=== PATIENT | female | born 1955 | race Caucasian/White ===

== ENCOUNTER 2020-05-17 16:41 | Observation (INO) | payer OTHER ==
[~2020-05-17] VITALS: Ht 165.1 cm; Wt 83.5 kg
[2020-05-17 17:14] LABS: BASOPHILS % (AUTO) 0 % (0-10); EOSINOPHILS # (AUTO) 0.1 10^3/uL (0.0-0.3); EOSINOPHILS % (AUTO) 1 % (0-10); HEMATOCRIT 48 % (35-52); HEMOGLOBIN 16.2 g/dL (11.5-16.0); LYMPHOCYTES # (AUTO) 1.6 10^3/uL (1.0-4.0); LYMPHOCYTES % (AUTO) 21 % (12-44); MEAN CORPUSCULAR HEMOGLOBIN 29 pg (25-34); MEAN CORPUSCULAR HGB CONC 34 g/dL (32-36); MEAN CORPUSCULAR VOLUME 88 fL (80-99); MEAN PLATELET VOLUME 9.9 fL (9.0-12.2); MONOCYTES # (AUTO) 0.5 10^3/uL (0.0-1.0); MONOCYTES % (AUTO) 6 % (0-12); NEUTROPHILS # (AUTO) 5.7 10^3/uL (1.8-7.8); NEUTROPHILS % (AUTO) 72 % (42-75); PLATELET COUNT 283 10^3/uL (130-400); WHITE BLOOD COUNT 7.9 10^3/uL (4.3-11.0)
[2020-05-17 17:24] LABS: ALBUMIN 4.6 GM/DL (3.2-4.5); CHLORIDE 96 MMOL/L (98-107); SODIUM 135 MMOL/L (135-145)
[2020-05-17 17:26] LABS: CALCIUM 9.5 MG/DL (8.5-10.1)
[2020-05-17 17:27] LABS: GLUCOSE 169 MG/DL (70-105); TOTAL PROTEIN 7.6 GM/DL (6.4-8.2)
[2020-05-17 17:28] LABS: CARBON DIOXIDE 24 MMOL/L (21-32)
[2020-05-17 17:29] LABS: BILIRUBIN,TOTAL 1.1 MG/DL (0.1-1.0)
[2020-05-17 17:30] LABS: ALKALINE PHOSPHATASE 87 U/L (40-136); CREATININE SERUM 1.83 MG/DL (0.60-1.30); GFR ESTIMATED 28
[2020-05-17 17:31] LABS: BUN/CREATININE RATIO 22
[2020-05-17 17:33] LABS: ALANINE AMINOTRANSFERASE 25 U/L (0-55)
[2020-05-17] MEDS ORDERED: NS IV 1000 ML 1,000 ML IV SCH ×2 (18:00→23:00)
[2020-05-17 18:11] LABS: CLARITY,URINE CLEAR; COLOR,URINE YELLOW; GLUCOSE, URINE (UA) NEGATIVE (NEGATIVE); KETONES,URINE NEGATIVE (NEGATIVE); LEUKOCYTE ESTERASE ,URINE TRACE (NEGATIVE); NITRITE,URINE NEGATIVE (NEGATIVE); PROTEIN,URINE NEGATIVE (NEGATIVE)
--- NOTE | 2020-05-17 18:11 | NUR ---
Pt ambulated to restroom without difficulty; pt was noted to lean forward at the waist while ambulating.
[2020-05-17 18:15] LABS: BILIRUBIN,URINE NEGATIVE (NEGATIVE)
[2020-05-17 18:20] LABS: AMORPHOUS SEDIMENT,UR FEW AMOR URATES /LPF; BACTERIA,URINE TRACE /HPF; HYALINE CASTS, URINE 25-50 /LPF; WBC,URINE 0-2 /HPF
--- NOTE | 2020-05-17 18:27 | ED Syncope ---
General Chief Complaint: Dizziness/Syncope Stated Complaint: DIZZINESS/SYNCOPE Nursing Triage Note: Pt had a syncopal episode earlier today; denies injury. Pt does report she has had difficulty walking x 1 wk: states "my legs get ahead of me". (RAJ GREEN MD) History of Present Illness Date Seen by Provider: May 17, 2020 Time Seen by Provider: 17:08 Initial Comments This 64-year-old woman presents to the emergency room with a couple episodes over the last couple weeks of disequilibrium and syncope or near syncope. Today she actually went down to the ground and thinks she might have momentarily lost consciousness. She denies any injury. She describes a sensation of being off balance or her feet trying to go ahead of her body when she walks. She does demonstrate ability to walk independently and safely in the emergency room and reports that symptoms are not as intense at this moment. She has had recent headache as well. She denies any drug, tobacco, or alcohol use. She recently moved to the area from [place] and has not yet established with a local primary care provider. (RAJ GREEN MD) Allergies and Home Medications Allergies Coded Allergies: No Known Drug Allergies (Unverified , 05/17/20) Patient Home Medication List Home Medication List Reviewed: Yes (RAJ GREEN MD) Review of Systems Constitutional: no symptoms reported EENTM: no symptoms reported Respiratory: no symptoms reported Cardiovascular: no symptoms reported Gastrointestinal: no symptoms reported Genitourinary: no symptoms reported : No Musculoskeletal: no symptoms reported Skin: no symptoms reported Psychiatric/Neurological: See HPI (RAJ GREEN MD) Past Wmecska-Zdoegw-Jccvbu Hx Past Med/Social Hx: Reviewed Nursing Past Med/Soc Hx (RAJ GREEN MD) Patient Social History Alcohol Use: Denies Use Recreational Drug Use: No Smoking Status: Never a Smoker Recent Foreign Travel: No Contact w/Someone Who Travel: No Recent Infectious Disease Expo: No Recent Hopitalizations: No (RAJ GREEN MD) Seasonal Allergies Seasonal Allergies: No (RAJ GREEN MD) Past Medical History Surgeries: Yes Tubal Ligation Cardiac: Yes Hypertension Gastrointestinal: No Musculoskeletal: No Endocrine: Yes Diabetes, Non-Insulin dep HEENT: No Cancer: No Psychosocial: No (RAJ GREEN MD) Physical Exam Vital Signs Vital Signs - First Documented 05/17/20 16:50 Temp 37.3 Pulse 71 Resp 18 B/P (MAP) 134/74 (94) O2 Delivery Room Air (MICHAEL BARTON MD) Vital Signs Capillary Refill : Less Than 3 Seconds (RAJ GREEN MD) Height, Weight, BMI Height: '" Weight: lbs. oz. kg; 38.00 BMI Method: General Appearance: No Apparent Distress, WD/WN HEENT: PERRL/EOMI, Normal ENT Inspection Neck: Normal Inspection Cardiovascular: Regular Rate, Rhythm, No Edema, No Murmur Respiratory: Lungs Clear, Normal Breath Sounds, No Accessory Muscle Use, No Respiratory Distress Gastrointestinal: Normal Bowel Sounds, No Organomegaly, Soft Neurologic/Psychiatric: Alert, Oriented x3, No Motor/Sensory Deficits, Normal Mood/Affect, import/export analyst II-XII Norm as Tested Cranial Nerves: Normal Speech, PERRL Coordination/Gait: Normal Gait Motor/Sensory: No Motor Deficit, No Sensory Deficit, No Pronator Drift, Negative Babinski's Sign Skin: Normal Color, Warm/Dry (RAJ GREEN MD) Progress/Results/Core Measures Results/Orders Lab Results Laboratory Tests Test 05/17/20 17:00 05/17/20 18:00 Range/Units White Blood Count 7.9 4.3-11.0 10^3/uL Red Blood Count 5.52 H 3.80-5.11 10^6/uL Hemoglobin 16.2 H 11.5-16.0 g/dL Hematocrit 48 35-52 % Mean Corpuscular Volume 88 80-99 fL Mean Corpuscular Hemoglobin 29 25-34 pg Mean Corpuscular Hemoglobin Concent 34 32-36 g/dL Red Cell Distribution Width 12.9 10.0-14.5 % Platelet Count 283 130-400 10^3/uL Mean Platelet Volume 9.9 9.0-12.2 fL Immature Granulocyte % (Auto) 0 % Neutrophils (%) (Auto) 72 42-75 % Lymphocytes (%) (Auto) 21 12-44 % Monocytes (%) (Auto) 6 0-12 % Eosinophils (%) (Auto) 1 0-10 % Basophils (%) (Auto) 0 0-10 % Neutrophils # (Auto) 5.7 1.8-7.8 10^3/uL Lymphocytes # (Auto) 1.6 1.0-4.0 10^3/uL Monocytes # (Auto) 0.5 0.0-1.0 10^3/uL Eosinophils # (Auto) 0.1 0.0-0.3 10^3/uL Basophils # (Auto) 0.0 0.0-0.1 10^3/uL Immature Granulocyte # (Auto) 0.0 0.0-0.1 10^3/uL Sodium Level 135 135-145 MMOL/L Potassium Level 4.0 3.6-5.0 MMOL/L Chloride Level 96 L 98-107 MMOL/L Carbon Dioxide Level 24 21-32 MMOL/L Anion Gap 15 H 5-14 MMOL/L Blood Urea Nitrogen 40 H 7-18 MG/DL Creatinine 1.83 H 0.60-1.30 MG/DL Estimat Glomerular Filtration Rate 28 BUN/Creatinine Ratio 22 Glucose Level 169 H 70-105 MG/DL Calcium Level 9.5 8.5-10.1 MG/DL Corrected Calcium 8.5-10.1 MG/DL Total Bilirubin 1.1 H 0.1-1.0 MG/DL Aspartate Amino Transf (AST/SGOT) 18 5-34 U/L Alanine Aminotransferase (ALT/SGPT) 25 0-55 U/L Alkaline Phosphatase 87 40-136 U/L Troponin I < 0.028 <0.028 NG/ML Total Protein 7.6 6.4-8.2 GM/DL Albumin 4.6 H 3.2-4.5 GM/DL Urine Color YELLOW Urine Clarity CLEAR Urine pH 5.0 5-9 Urine Specific [place] 1.025 H 1.016-1.022 Urine Protein NEGATIVE NEGATIVE Urine Glucose (UA) NEGATIVE NEGATIVE Urine Ketones NEGATIVE NEGATIVE Urine Nitrite NEGATIVE NEGATIVE Urine Bilirubin NEGATIVE NEGATIVE Urine Urobilinogen 0.2 < = 1.0 MG/DL Urine Leukocyte Esterase TRACE H NEGATIVE Urine RBC (Auto) NEGATIVE NEGATIVE Urine RBC NONE /HPF Urine WBC 0-2 /HPF Urine Squamous Epithelial Cells 5-10 /HPF Urine Crystals NONE /LPF Urine Amorphous Sediment FEW DANNY URATES H /LPF Urine Bacteria TRACE /HPF Urine Casts PRESENT /LPF Urine Hyaline Casts 25-50 H /LPF Urine Mucus SMALL H /LPF Urine Culture Indicated NO (MICHAEL BARTON MD) My Orders Orders - MICHAEL BARTON MD Lactated Ringers (Lr 1000 Ml Iv Solution (05/17/20 19:37) Troponin I (05/17/20 19:39) (MICHAEL BARTON MD) Vital Signs/I&O 05/17/20 16:50 Temp 37.3 Pulse 71 Resp 18 B/P (MAP) 134/74 (94) O2 Delivery Room Air (MICHAEL BARTON MD) Blood Pressure Mean: 94 Progress Progress Note : Time: 18:26 Progress Note Patient was seen and evaluated. I did observe her walk for a significant distance and she was able to do so safely and independently. Her creatinine and BUN are elevated. We do not have a baseline. I can speculate that this may be part of her symptom etiology. We are administering a liter of IV fluids. I did check a standing blood pressure and it did not change significantly prior to fluids. I desired to obtain a CT angiogram of the head and neck but could not due to her renal function. A plain CT is being obtained. Care of this patient is being transitioned to Dr. Barton at this time. Urinalysis and CT of the head are pending. (RAJ GREEN MD) Progress Note : Progress Note 1829: Assumed care of the patient pending CT scan. Monitor patient. 2020: CT complete. I have added another liter of IV fluid. Patient is overall feeling much better. States that she started Metformin a month or so ago and some of the symptoms have started since then. Denies chest pain or breathing problems. Monitor patient. 2049: CT results noted. I did discuss the case with the patient and with Dr. Ledbetter. She has no outpatient follow-up as she is new to the area and would benefit from physical therapy evaluation as well's adjustment of her diabetes medicine. She has had some episodes of bradycardia although I think it is related to PAC/PVC. She would benefit from telemetry overnight. Dr. Ledbetter agrees. Patient accepts admission, observation status with physical therapy evaluation in the morning. We have asked for social work to consult regarding outpatient services and options for local physicians. Patient agrees with plan. She is better after 2 L of IV fluid that have been given in the emergency department. We will check labs in the morning. (MICHAEL BARTON MD) Initial ECG Impression Date: May 17, 2020 Initial ECG Impression Time: 17:08 Initial ECG Rate: 69 Initial ECG Rhythm: Normal Sinus Comment Sinus rhythm with no ST elevation or depression. PAC noted. Automated read notes incomplete left bundle branch block. (RAJ GREEN MD) Diagnostic Imaging Diagonstic Imaging: CT Plain Films/CT/US/NM/MRI: head Comments [facility], [place] NAME: ROBER FERRER REC#: [id number] PT STATUS: REG ER : 1955 PHYSICIAN: RAJ GREEN MD ADMIT DATE: 05/17/20/ER Draft Date of Exam:05/17/20 CT HEAD/CERVICAL SPINE WO PROCEDURE: CT head and CT cervical spine without contrast. TECHNIQUE: Multiple contiguous axial images were obtained through the brain and cervical spine without the use of intravenous contrast. Sagittal and coronal reformations through the cervical spine were then performed. Auto Exposure Controls were utilized during the CT exam to meet ALARA standards for radiation dose reduction. INDICATION: Fall. COMPARISON: No comparison is available. FINDINGS: There is no CT finding of acute intracranial hemorrhage. There is no evidence of an abnormal extra-axial collection. There is no intracranial mass effect or shift. There is no finding of territorial loss of barba-white differentiation. The lateral and 3rd ventricles are prominent. Prominence of the ventricles are greater than expected for the degree of volume loss. There is also some crowding of the sulci at the high vertex. Findings are suggestive of underlying normal pressure hydrocephalus. The mastoid air cells appear clear. The visualized paranasal sinuses appear clear. Orbital contents unremarkable. There are no findings of a calvarial fracture. Cervical spine demonstrate multilevel cervical degenerative disc disease and facet arthropathy. There is straightening of the cervical lordosis. Alignment of the craniocervical junction appears appropriate. There are normal relationships of the lateral masses of C1 and C2. The facets are normally aligned. There is no facet joint or disc space widening. Vertebral body heights are maintained. No acute cervical spine fracture is evident. There are advanced degenerative endplate changes with endplate spurs at C5-C6 and C6-C7. There is moderate narrowing of the central canal at the C5-C6 level and there also appears to be severe narrowing of both neural foramen. At C6-C7 there is additionally moderate narrowing of the central canal and moderate narrowing of both neural foramen. The lung apices appear clear. Soft tissues of the neck demonstrate a small right thyroid nodule. There is no acute process. IMPRESSION: 1. No CT evidence of an acute intracranial abnormality. There is no finding of intracranial hemorrhage or calvarial fracture. 2. No loss of barba-white differentiation. 3. Prominent lateral and 3rd ventricles out of proportion to the degree of volume loss present. In the appropriate clinical setting consider normal pressure hydrocephalus. 4. Cervical degenerative disc disease and facet arthropathy without acute fracture or traumatic malalignment. There is moderate narrowing of the central canal at both C5-C6 and C6-C7. There is severe bilateral foraminal stenosis at C5-C6 and moderate bilateral foraminal stenosis at the C6-C7 level. Dictated on workstation # [id number] Dict: 05/17/201999 Trans: 05/17/202013 [facility] [id number] Interpreted by: LEIGH CHICAS MD Electronically signed by: (MICHAEL BARTON MD) Departure Communication (Admissions) Time/Spoke to Admitting Phy: 20:50 (MICHAEL BARTON MD) Impression Primary Impression: Disequilibrium Additional Impressions: Syncope Qualified Codes: R55 - Syncope and collapse Renal insufficiency Normal pressure hydrocephalus Bradycardia Disposition: 09 ADMITTED INPATIENT Condition: Stable Admissions Decision to Admit Reason: Admit from ER (General) Decision to Admit/Date: May 17, 2020 Time/Decision to Admit Time: 20:50 (MICHAEL BARTON MD) Departure-Patient Inst. Referrals: NO,LOCAL PHYSICIAN (PCP/Family) Primary Care Physician RAJ GREEN MD May 17, 2020 18:27 MICHAEL BARTON MD May 17, 2020 20:25
[2020-05-17] MEDS ORDERED: LACTATED RINGERS 1,000 ML IV STA (19:37)
--- NOTE | 2020-05-17 19:39 | NUR ---
Pt to CT.
--- NOTE | 2020-05-17 20:00 | NUR ---
Pt back from CT
--- NOTE | 2020-05-17 20:14 | Diagnostic Imaging Report ---
PROCEDURE: CT head and CT cervical spine without contrast. TECHNIQUE: Multiple contiguous axial images were obtained through the brain and cervical spine without the use of intravenous contrast. Sagittal and coronal reformations through the cervical spine were then performed. Auto Exposure Controls were utilized during the CT exam to meet ALARA standards for radiation dose reduction. INDICATION: Fall. COMPARISON: No comparison is available. FINDINGS: There is no CT finding of acute intracranial hemorrhage. There is no evidence of an abnormal extra-axial collection. There is no intracranial mass effect or shift. There is no finding of territorial loss of barba-white differentiation. The lateral and 3rd ventricles are prominent. Prominence of the ventricles are greater than expected for the degree of volume loss. There is also some crowding of the sulci at the high vertex. Findings are suggestive of underlying normal pressure hydrocephalus. The mastoid air cells appear clear. The visualized paranasal sinuses appear clear. Orbital contents unremarkable. There are no findings of a calvarial fracture. Cervical spine demonstrate multilevel cervical degenerative disc disease and facet arthropathy. There is straightening of the cervical lordosis. Alignment of the craniocervical junction appears appropriate. There are normal relationships of the lateral masses of C1 and C2. The facets are normally aligned. There is no facet joint or disc space widening. Vertebral body heights are maintained. No acute cervical spine fracture is evident. There are advanced degenerative endplate changes with endplate spurs at C5-C6 and C6-C7. There is moderate narrowing of the central canal at the C5-C6 level and there also appears to be severe narrowing of both neural foramen. At C6-C7 there is additionally moderate narrowing of the central canal and moderate narrowing of both neural foramen. The lung apices appear clear. Soft tissues of the neck demonstrate a small right thyroid nodule. There is no acute process. IMPRESSION: 1. No CT evidence of an acute intracranial abnormality. There is no finding of intracranial hemorrhage or calvarial fracture. 2. No loss of barba-white differentiation. 3. Prominent lateral and 3rd ventricles out of proportion to the degree of volume loss present. In the appropriate clinical setting consider normal pressure hydrocephalus. 4. Cervical degenerative disc disease and facet arthropathy without acute fracture or traumatic malalignment. There is moderate narrowing of the central canal at both C5-C6 and C6-C7. There is severe bilateral foraminal stenosis at C5-C6 and moderate bilateral foraminal stenosis at the C6-C7 level. Dictated by: Dictated on workstation # [id number]
--- NOTE | 2020-05-17 22:27 | NUR ---
ROBER FERRER admitted to room 416-1, with an admitting diagnosis of BRADYCARDIA, DISEQUILIBRIUM, AND NORMAL PRESSURE HYDROCEPHALUS on 05/17/20 from ER via , accompanied by ER STAFF. ROBER FERRER introduced to surroundings, call light, bed controls, phone, TV, temperature control, lights, meal times, smoking policy, visitor policy, side rail policy, bathrooms and showers. Patient Rights given to patient in the handbook. ROBER FERRER verbalizes understanding that [facility] is not responsible for the loss or damage to any personal effects or valuables that are kept in the patients posession during their hospitalization. ROBER FERRER verbalizes understanding of Interdisciplinary Patient Education. Patient and/or family were informed about the Rapid Response Team and its purpose.
[2020-05-17 22:28] VITALS: BP 141/65
[2020-05-17 23:31] VITALS: BP 148/66
[2020-05-18 04:17] VITALS: BP 128/62
[2020-05-18 06:22] LABS: BASOPHILS % (AUTO) 0 % (0-10); EOSINOPHILS # (AUTO) 0.1 10^3/uL (0.0-0.3); EOSINOPHILS % (AUTO) 2 % (0-10); HEMATOCRIT 43 % (35-52); HEMOGLOBIN 14.2 g/dL (11.5-16.0); LYMPHOCYTES # (AUTO) 1.5 10^3/uL (1.0-4.0); LYMPHOCYTES % (AUTO) 28 % (12-44); MEAN CORPUSCULAR HEMOGLOBIN 30 pg (25-34); MEAN CORPUSCULAR HGB CONC 33 g/dL (32-36); MEAN CORPUSCULAR VOLUME 90 fL (80-99); MEAN PLATELET VOLUME 9.8 fL (9.0-12.2); MONOCYTES # (AUTO) 0.4 10^3/uL (0.0-1.0); MONOCYTES % (AUTO) 7 % (0-12); NEUTROPHILS # (AUTO) 3.3 10^3/uL (1.8-7.8); NEUTROPHILS % (AUTO) 63 % (42-75); PLATELET COUNT 171 10^3/uL (130-400); WHITE BLOOD COUNT 5.2 10^3/uL (4.3-11.0)
[2020-05-18 06:34] LABS: ALBUMIN 3.8 GM/DL (3.2-4.5); POTASSIUM 3.6 MMOL/L (3.6-5.0)
[2020-05-18 06:36] LABS: TOTAL PROTEIN 5.9 GM/DL (6.4-8.2)
[2020-05-18 06:38] LABS: BILIRUBIN,TOTAL 0.7 MG/DL (0.1-1.0)
[2020-05-18 06:40] LABS: CREATININE SERUM 1.24 MG/DL (0.60-1.30)
[2020-05-18] MEDS: inSUlin ASPART (NovoLOG) 1 UNIT/0.01 ML (CHARGE PER UNIT) SC SCH ×2 (06:42→11:25)
[2020-05-18 08:00] VITALS: BP 126/58
--- NOTE | 2020-05-18 10:20 | Physical Therapy Evaluation ---
PT Evaluation-General Medical Diagnosis Admission Date May 17, 2020 at 21:04 Medical Diagnosis: normal pressure hydrocephalus/dis equilibrium Onset Date: May 17, 2020 Therapy Diagnosis Therapy Diagnosis: debility Precautions Precautions/Isolations: Standard Precautions Referral Physician: Josesito Reason for Referral: Evaluation/Treatment Medical History Pertinent Medical History: DM, HTN Current History ER secondary to BRUCE and dizziness (patient reports she had an episode after leaving the bar) Reviewed History: Yes Social History Home: Single Level Current Living Status: Other Family Prior Prior Level of Function SCALE: Activities may be completed with or without assistive devices. 4-Xccnodxhny-rldybxm completes the activity by him/herself with no assistance from a helper. 5-Set-up or Clean-up Assistance-helper sets up or cleans up; patient completes activity. [place] assists only prior to or following the activity. 4-Supervision or Touching Assistance-helper provides verbal cues and/or touching/steadying and/or contact guard assistance as patient completes activity. Assistance may be provided throughout the activity or intermittently. 3-Partial/Moderate Assistance-helper does LESS THAN HALF the effort. [place] lifts, holds or supports trunk or limbs, but provides less than half the effort. 2-Substantial/Maximal Assistance-helper does MORE THAN HALF the effort. [place] lifts or holds trunk or limbs and provides more than half the effort. 9-Wdgfiiiuj-isqipq does ALL the effort. Patient does none of the effort to complete the activity. Or, the assistance of 2 or more helpers is required for the patient to complete the activity. If activity was not attempted, code reason: 7-Patient Refused. 9-Not Applicable-not attempted and the patient did not perform the activity before the current illness, exacerbation or injury. 10-Not Attempted due to Environmental Limitations-(lack of equipment, weather restraints, etc.). 88-Not Attempted due to Medical Conditions or Safety Concerns. Bed Mobility: 6 Transfers (B,C,W/C): 6 Gait: 6 Stairs: 6 Indoor Mobility (Ambulation): Independent Stairs: Independent Prior Devices Use: None PT Evaluation-Current Subjective Patient agrees to PT. No c/o. Objective Patient Orientation: Normal For Age Attachments: IV ROM/Strength ROM Lower Extremities bilateral LE WFL Strength Lower Extremities 4/5 grossly bilateral LE Integumentary/Posture Integumentary refer to nursing notes Bowel Incontinence: No Bladder Incontinence: No Posture WFL Neuromuscular (Tone, Coordination, Reflexes) grossly intact Sensory Vision: Functional Hearing: Functional Sensation Right Lower Extremit: Intact Sensation Left Lower Extremity: Intact Transfers Lying to Sitting/Side of Bed(Q: 6 Sit to Stand (QC): 6 Chair/Wjs-pi-Qeppt Xfer(QC): 6 Toilet Transfer (QC): 6 Gait Does the Patient Walk?: Yes Mode of Locomotion: Walk Anticipated Mode of Locomotion: Walk Walk 10 feet (QC): 6 Walk 50 ft with 2 Turns(QC): 6 Walk 150 ft (QC): 6 Distance: 550' Gait Assistive Device: None Comments/Gait Description safe and functional with no deviation Balance Sitting Static: Normal Sitting Dynamic: Normal Standing Static: Normal Standing Dynamic: Normal Assessment/Needs 64 y.o. female, is currently at [facility] with all gross motor skills and does not require skilled therapy intervention. Rehab Potential: Fair PT Plan Treatment/Plan Treatment Plan: Discontinue PT, goals met Treatment Duration: May 18, 2020 Frequency: 1 time per week Estimated Hrs Per Day: .25 hour per day Patient and/or Family Agrees t: Yes Discharge Recommendations Therapy Discharge Recommendati: Home & Family Time/GCodes Time In: 929 Time Out: 938 Total Billed Treatment Time: 9 Total Billed Treatment 1 visit EVLowC 9 min ELI KRISHNAN PT May 18, 2020 10:20
[2020-05-18] MEDS ORDERED: LOSA50TA63 PO (10:30)
[2020-05-18] MEDS ORDERED: ASPI-816 PO (10:30)
[2020-05-18] MEDS ORDERED: KETO15CR2 TP (10:30)
[2020-05-18] MEDS ORDERED: AMLO-251 PO (10:30)
[2020-05-18] MEDS ORDERED: METF-397 PO (10:30)
[2020-05-18] MEDS ORDERED: ATOR10TA66 PO (10:30)
[2020-05-18] MEDS ORDERED: VENL-48 PO (10:30)
[2020-05-18] MEDS ORDERED: MONT10TA21 PO (10:30)
[2020-05-18] MEDS ORDERED: POTA10TA36 PO (10:30)
[2020-05-18] MEDS ORDERED: NFNEB10T PO (10:30)
[2020-05-18] MEDS ORDERED: HYDR12.56 PO (10:30)
--- NOTE | 2020-05-18 10:36 | NUR ---
SPOKE WITH THE PT (SHE HAS HER MED BOTTLES) TO COMPLETE THE MED REC FOLLOWING ARE FILL DATES FROM [facility] IN [place], [place]: 11-30-2019 ATORVASTATIN 10MG #90/90DS 02-18-2020 BYSTOLIC 10MG #30/30DS 03-10-2020 POTASSIUM CL ER 10MEQ #60/30DS 03-10-2020 VENLAFAXINE ER 37.5MG #30/30DS 03-10-2020 HCTZ 12.5MG #60/30DS 03-10-2020 AMLODIPINE 10MG #30/30DS 03-10-2020 MONTELUKAST 10MG #30/30DS 03-16-2020 LOSARTAN 50MG #60/30DS 04-03-2020 METFORMIN 500MG #60/30DS ALL THE PTS MEDICATIONS ARE PAST DUE FOR REFILLS (I INCLUDED THE PAST DUE FILL DATE ON THE MED REC)-I ASKED THE PT ABOUT THE FILL DATES AND ACCORDING TO ROBER SHE SOMETIMES FORGETS TO TAKE THE EVENING DOSES OF HER MEDICATIONS AND THOUGHT SHE HAD SOME EXTRA PILLS STILL LEFT OVER FROM PREVIOUS FILLS OTC MEDS: WAYNE BACK AND BODY PRN
--- NOTE | 2020-05-18 10:43 | NUR ---
CM/SS visited with patient for social service consult. Plan: Patient will discharge today 05/18 to home (son's house). Primary Care Physician: The patient reports that she does not have a primary care physician at this time. However, the physician and this sw discussed getting established with [facility] due to low income. CM/SS explained that they have a financial application to help provide assistance for her bills and pharmacy (5 dollar med plan). She is agreeable and verbalized understanding. Home: The patient has just recently moved here from [facility]. She is currently living with her son. He verbalized she could stay as long as she needs. Financial: The patient reports she does not currently have a job. She receives her late husbands social security but that is her only income. The patient's insurance expires at the end of the year. No further needs at this time.
--- NOTE | 2020-05-18 11:28 | NUR ---
Pt is Islam. declines sacraments and is glad she is going home.
[2020-05-18 12:00] VITALS: BP 128/61
--- NOTE | 2020-05-18 12:48 | Discharge Summary ---
Discharge Summary Hospital Course Was the Problem List Reviewed?: Yes Problems/Dx: (1) Weakness Status: Acute Hospital Course Date of Admission: May 17, 2020 at 21:04 Admission Diagnosis : Weakness Family Physician/Provider: No,Local Physician Date of Discharge: 05/18/20 Discharge Diagnosis: Weakness Hospital Course: Alexandra Smart is a 64-year-old female who was admitted with weakness. She said that she was leaving a sporting event when her legs "quit working" and she fell to the ground. She denied any loss of consciousness. She denied lightheadedness and/or dizziness. She denied any leg pain. She had no further issues with weakness after admission. Her lab workup was unrevealing. She was found to have an acute kidney injury which resolved with IV fluid resuscitation. Her CT Head was concerning for possible normal pressure hydrocephalus. She denied any issues with incontinence or confusion. She recently moved to [place] from [place] and needs to get set up with a new PCP. Labs and Pending Lab Test: Laboratory Tests 05/17/20 17:00: White Blood Count 7.9, Red Blood Count 5.52H, Hemoglobin 16.2H, Hematocrit 48, Mean Corpuscular Volume 88, Mean Corpuscular Hemoglobin 29, Mean Corpuscular Hemoglobin Concent 34, Red Cell Distribution Width 12.9, Platelet Count 283, Mean Platelet Volume 9.9, Immature Granulocyte % (Auto) 0, Neutrophils (%) (Auto) 72, Lymphocytes (%) (Auto) 21, Monocytes (%) (Auto) 6, Eosinophils (%) (Auto) 1, Basophils (%) (Auto) 0, Neutrophils # (Auto) 5.7, Lymphocytes # (Auto) 1.6, Monocytes # (Auto) 0.5, Eosinophils # (Auto) 0.1, Basophils # (Auto) 0.0, Immature Granulocyte # (Auto) 0.0, Sodium Level 135, Potassium Level 4.0, Chloride Level 96L, Carbon Dioxide Level 24, Anion Gap 15H, Blood Urea Nitrogen 40H, Creatinine 1.83H, Estimat Glomerular Filtration Rate 28, BUN/Creatinine Ratio 22, Glucose Level 169H, Calcium Level 9.5, Corrected Calcium , Total Bilirubin 1.1H, Aspartate Amino Transf (AST/SGOT) 18, Alanine Aminotransferase (ALT/SGPT) 25, Alkaline Phosphatase 87, Troponin I < 0.028, Total Protein 7.6, Albumin 4.6H 05/17/20 18:00: Urine Color YELLOW, Urine Clarity CLEAR, Urine pH 5.0, Urine Specific [place] 1.025H, Urine Protein NEGATIVE, Urine Glucose (UA) NEGATIVE, Urine Ketones NEGATIVE, Urine Nitrite NEGATIVE, Urine Bilirubin NEGATIVE, Urine Urobilinogen 0.2, Urine Leukocyte Esterase TRACEH, Urine RBC (Auto) NEGATIVE, Urine RBC NONE, Urine WBC 0-2, Urine Squamous Epithelial Cells 5-10, Urine Crystals NONE, Urine Amorphous Sediment FEW DANNY URATESH, Urine Bacteria TRACE, Urine Casts PRESENT, Urine Hyaline Casts 25-50H, Urine Mucus SMALLH, Urine Culture Indicated NO 05/18/20 05:46: White Blood Count 5.2, Red Blood Count 4.80, Hemoglobin 14.2, Hematocrit 43, Mean Corpuscular Volume 90, Mean Corpuscular Hemoglobin 30, Mean Corpuscular Hemoglobin Concent 33, Red Cell Distribution Width 12.9, Platelet Count 171, Mean Platelet Volume 9.8, Immature Granulocyte % (Auto) 0, Neutrophils (%) (Auto) 63, Lymphocytes (%) (Auto) 28, Monocytes (%) (Auto) 7, Eosinophils (%) (Auto) 2, Basophils (%) (Auto) 0, Neutrophils # (Auto) 3.3, Lymphocytes # (Auto) 1.5, Monocytes # (Auto) 0.4, Eosinophils # (Auto) 0.1, Basophils # (Auto) 0.0, Immature Granulocyte # (Auto) 0.0, Sodium Level 140, Potassium Level 3.6, Chloride Level 104, Carbon Dioxide Level 24, Anion Gap 12, Blood Urea Nitrogen 29H, Creatinine 1.24, Estimat Glomerular Filtration Rate 44, BUN/Creatinine Ratio 23, Glucose Level 136H, Calcium Level 9.0, Corrected Calcium 9.2, Total Bilirubin 0.7, Aspartate Amino Transf (AST/SGOT) 17, Alanine Aminotransferase (ALT/SGPT) 21, Alkaline Phosphatase 75, Total Protein 5.9L, Albumin 3.8 05/18/20 11:21: Glucometer 142H Home Meds Active Reported Wilberto Back & Body Caplet (Aspirin/Caffeine) 1 Each Tablet 1-2 Each PO Q6H PRN Ketoconazole 15 Gm Cream..g. 15 Gm TP PRN PRN Bystolic (Nebivolol HCl) 10 Mg Tab 10 Mg PO HS LAST FILLED 02-18-2020 #30/30 DAY SUPPLY Singulair (Montelukast Sodium) 10 Mg Tablet 10 Mg PO DAILY LAST FILLED 03-10-2020 #30/30 DAY SUPPLY Atorvastatin Calcium 10 Mg Tablet 10 Mg PO HS LAST FILLED 11-30-2019 #90/90 DAY SUPPLY Amlodipine Besylate 10 Mg Tablet 10 Mg PO DAILY LAST FILLED 03-10-2020 #30 DAY SUPPLY Hydrochlorothiazide 12.5 Mg Tablet 12.5 Mg PO BID LAST FILLED 03-10-2020 #60/ DAY SUPPLY Metformin HCl 500 Mg Tablet 500 Mg PO BID LAST FILLED 04-03-2020 #60/30 DAY SUPPLY Venlafaxine HCl ER (Venlafaxine HCl) 37.5 Mg Cap.er.24h 37.5 Mg PO DAILY LAST FILLED 03-10-2020 #30 DAY SUPPLY Losartan Potassium 50 Mg Tablet 50 Mg PO DAILY LAST FILLED 03-16-2020 #60/ DAY SUPPLY Potassium Chloride 10 Meq Tab.er.prt 10 Meq PO BID LAST FILLED 03-10-2020 #60/ DAY SUPPLY Assessment/Pt Instructions take medications as prescribed. Establish care with a new primary care p hysician. Return with worsening weakness or if you feel like you are getting worse. Discharge Planning: <30 minutes discharge planning Discharge Instructions Discharge Diet: No Restrictions Activity as Tolerated: Yes Discharge Physical Examination Vital Signs Vital Signs Date Time Temp Pulse Resp B/P (MAP) Pulse Ox O2 Delivery O2 Flow Rate FiO2 05/18/20 08:00 Room Air 05/18/20 08:00 36.4 54 18 126/58 (80) 96 General Appearance: No Apparent Distress, WD/WN HEENT: PERRL/EOMI, Pharynx Normal Respiratory: Lungs Clear, Normal Breath Sounds, No Respiratory Distress Cardiovascular: Regular Rate, Rhythm, No Edema, No Murmur Gastrointestinal: Normal Bowel Sounds, Non Tender, Soft Extremity: Normal Inspection, Non Tender, No Pedal Edema Skin: Normal Color, Warm/Dry Neurologic/Psychiatric: Alert, Oriented x3, No Motor/Sensory Deficits, Normal M ood/Affect Allergies: Coded Allergies: No Known Drug Allergies (Unverified , 05/17/20) [facility] Copies To 1: [facility] [place] Date of Admission May 17, 2020 at 21:04 Date of Discharge Discharge Date: May 18, 2020 Discharge Time: 12:47 Admission Diagnosis Weakness Discharge Diagnosis (1) Weakness Status: Acute Clinical Quality Measures DVT/VTE Risk/Contraindication: Risk Factor Score Per Nursin RFS Level Per Nursing on Admit: 4+=Very High JANELL MARCUM MD May 18, 2020 12:47
--- NOTE | 2020-05-18 14:38 | NUR ---
INSTRUCTIONS GIVEN AND VERBALIZED UNDERSTANDING. DC'D TO HOME.
--- NOTE | 2020-05-18 14:50 | NUR ---
RD ASSESSMENT PMHx: HTN; DM; PT INTERACTION: Pt was awake and pleasant during nutrition assessment. Pt states current appetite is pretty good. Note PO intake 100% x1meal, per chart review. Pt states following a regular diet at home, and has no issues with chewing/swallowing food. Pt states no recent issues with n/v/c/d, and that her last BM was 6. Note pt not currently on bowel regimen per chart review. Pt states recent wt loss of 60# x2mon, stating that she weighed 245# in March 2020. Note unable to determine recent wt hx, per chart review. Note pt has no visible signs of that level of significant wt loss. Pt states current DM management as "trying to keep it under control." Note unable to determine recent HbA1c, per chart review. Note pt has diet questions concerning DM diet. ABNORMAL NUTRITION-RELATED LAB VALUES LOW: Pro 5.9; HIGH:BUN 29; glu 136; Est. kcal needs: 1013-1288 kcal | 15-20 kcal/kg Est. Pro needs: 67-84 g Pro | 0.8-1.0 g Pro/kg PES STATEMENT: Food- and nutrition-related knowledge deficit (NB-1.1) related to lack of prior nutrition-related education as evidenced by pt interview. INTERVENTION: Continue with current diet order of CHO 60g/m 3snack diet. Offered and provided diet education on DM management. Discussed CHO counting, portion control, nutrition label reading, meal planning and smartphone applications. Pt verbalized understanding of information provided. Will continue to follow and reassess as pt needs, intake, and status change. Leatha Andujar MS RD LD [phone] cell
== END 2020-05-18 14:41 | disposition home or self-care (01) ==
LOC: ER 16:43 → 4TH 21:04
PROVIDERS: ADMIT Family Medicine; ATTEND Family Medicine
DX: R53.1 Weakness (principal); R55 Syncope and collapse; I12.9 Hypertensive chronic kidney disease with stage 1 through stage 4 chronic kidney disease, or unspecified chronic kidney disease; N18.9 Chronic kidney disease, unspecified; E11.22 Type 2 diabetes mellitus with diabetic chronic kidney disease; E87.8 Other disorders of electrolyte and fluid balance, not elsewhere classified; R00.1 Bradycardia, unspecified
CPT/HCPCS: 36415; 70450; 72125; 80053; 81000; 82962; 84484; 85025; 93005; 93041; G0378

== ENCOUNTER → 2020-06-03 | Outpatient (CLI) | payer OTHER ==
[~2020-06-03] MED LIST: AMLO-251 PO; ASPI-816 PO; ATOR10TA66 PO; HYDR12.56 PO; KETO15CR2 TP; LOSA50TA63 PO; METF-397 PO; MONT10TA21 PO; NFNEB10T PO; POTA10TA36 PO; VENL-48 PO
--- NOTE | 2020-06-03 16:47 | Diagnostic Imaging Report ---
PROCEDURE: MR imaging of the brain without contrast. TECHNIQUE: Multiplanar, multisequence MR imaging of the brain was performed without contrast. INDICATION: Dizziness. Fall. Concern for stroke. COMPARISON: CT head on 05/17/2020. FINDINGS: No acute ischemia, mass, or hemorrhage. Scattered chronic microvascular disease is seen in the periventricular white matter. The ventricles are prominent, out of proportion to the prominence of the cortical sulci. The basilar cisterns are symmetric and unremarkable. There is flattening of the pituitary. The major intracranial flow voids are intact. Nishant-cisterna magna is noted. A mucous retention cyst is seen in the antrum of the right maxillary sinus. Otherwise, the paranasal sinuses and mastoid air cells demonstrate normal signal characteristics. The globes and orbits are symmetric and unremarkable. The scalp and calvarium have a normal appearance. IMPRESSION: 1. No acute ischemia, mass, or hemorrhage. 2. Prominent ventricles out of proportion to the cortical sulci. This appearance can be seen with normal pressure hydrocephalus in the appropriate clinical setting. Recommend correlation with patient history and symptoms. 3. Scattered chronic microvascular disease in the periventricular white matter. Dictated by: Dictated on workstation # [id number]
== END ==
LOC: RAD 16:15
PROVIDERS: ATTEND Internal Medicine
DX: I67.89 Other cerebrovascular disease (principal); W19.XXXA Unspecified fall, initial encounter
CPT/HCPCS: 70551